=== PATIENT | male | born 1995 | race Caucasian/White ===

== ENCOUNTER → 2021-11-08 | Outpatient (CLI) | payer OTHER ==
--- NOTE | 2021-11-08 11:33 | KCIC ---
STUDY: MRI of the right knee without contrast INDICATION: Right knee pain. COMPARISON: None. TECHNIQUE: Multiplanar MR imaging of the right knee performed without the use of intravenous or intra -articular contrast. FINDINGS: A few sequences are degraded by motion to include the sagittal PD fat-saturated sequence. Menisci: No discrete tear of the medial or lateral meniscus. Artifactual heterogeneity at the posteri or horn of the lateral meniscus on the sagittal fat-saturated PD sequence. Cruciate ligaments: Intact. Collateral ligaments: Intact medial and lateral collateral ligaments. No retinacular disruption. Mild edema deep to the IT band along the lateral femoral condyle. Tendons: No tendon tear or significant tendinosis. Cartilage: Patellofemoral: Possible chondromalacia at the upper aspect of the patella median ridge though this m ay be artifact. No discrete trochlear chondral defect considering motion. Lateral compartment: Intact. Medial compartment: Intact. Bones: Within normal limits TT-TG distance of 1.4 cm. Marrow signal is within normal limits. Miscellaneous: Small amount of joint fluid. Tiny Lazaro's cyst IMPRESSION: 1. Mildly degraded study on account of patient motion. 2. Intact menisci, cruciate ligaments and collateral ligaments. 3. Mild edema along the undersurface of the IT band adjacent to the lateral femoral condyle. Correla te for any symptoms of IT band syndrome. 4. Possible mild chondromalacia at the patellar median ridge versus artifact. No full-thickness abril dral defect at the femorotibial or patellofemoral compartments. Electronically signed by: MULU DIAZ MD (11/08/2021 11:31 AM) [id number]
== END ==
LOC: KCIC MRI 08:15
PROVIDERS: ATTEND Nurse Practitioner Family
DX: R60.0 Localized edema (principal); M71.21 Synovial cyst of popliteal space [Baker], right knee; M25.561 Pain in right knee
CPT/HCPCS: 73721